=== PATIENT | male | born 1985 | race Caucasian/White ===

== ENCOUNTER → 2024-10-10 16:11 | Outpatient (REF) | payer OTHER, SELFPAY | LOC: REG 16:11 | PROVIDERS: ATTENDING PHYSICIAN Family Medicine | DX: R07.89 Other chest pain (principal); M54.9 Dorsalgia, unspecified | CPT/HCPCS: 71101 ==

== ENCOUNTER → 2024-10-14 12:46 | Outpatient (REF) | payer OTHER, SELFPAY | LOC: HWRAD 12:46 | PROVIDERS: ATTENDING PHYSICIAN Family Medicine | DX: M54.9 Dorsalgia, unspecified (principal); R10.10 Upper abdominal pain, unspecified | CPT/HCPCS: 76700 ==

== ENCOUNTER → 2025-01-14 14:06 | Outpatient (REF) | payer OTHER, SELFPAY | LOC: RAD 14:06 | PROVIDERS: ATTENDING PHYSICIAN Registered Nurse | DX: R09.89 Other specified symptoms and signs involving the circulatory and respiratory systems (principal) | CPT/HCPCS: 71046 ==

== ENCOUNTER 2025-07-03 00:56 | Emergency (ER) | payer OTHER, SELFPAY ==
[2025-07-03 00:59] VITALS: BP 132/82
[2025-07-03 01:13] VITALS: BMI 28.8
--- NOTE | 2025-07-03 01:27 | ED.GENMED ---
History of Present Illness
General
Chief Complaint: Fainting/Passed Out
Source: patient and spouse
Exam Limitations: none
Time Seen by Provider: 07/03/25 01:07
Nursing documentation reviewed up to this point in time: agreed with
History of Present Illness
History of Present Illness:
39-year-old male presenting to the emergency department after syncopal episode. He claims that he woke up from sleeping on the couch went to the bathroom after urinating was walking felt lightheaded and fell to the ground does not lapse of memory.
He claims that his heard a thud walked over and within a few seconds he was awake. There was a hole in the drywall. He had a laceration to his right upper lip and left eyebrow. He denies any chest pain palpitations shortness of breath or
additional symptoms other than some achiness to his face after the event. Has had intermittent lightheadedness over the past years. Denies any known heart history or substance use.
Review of Systems
Review of Systems
Allergies reviewed?: Yes
All Other Systems: ROS reviewed and negative except as documented in HPI and ROS
Phy Exam
Physical Exam
Physical Exam:
GENERAL: Alert , in no apparent distress
EYE: pupils equal and reactive
NECK: No neck pain supple, no significant adenopathy.
ENT: 3 cm laceration superior to the right upper lip, 1 cm laceration just lateral to the left eyebrow, o/p clr, mmm.
CARDIAC: Regular rate and rhythm .
LUNGS: Clear breath sounds bilaterally, no acute respiratory distress, no wheezes/rales/rhonchi
ABDOMEN: Soft, without focal tenderness, no r/g, no cvat
NEUROLOGICAL: Alert and oriented, no focal neuro deficits 5 out of 5 upper and lower extremity strength normal sensation with palpating bilaterally
SKIN: Warm and dry, skin intact.
MUSCULOSKELETAL: No edema, well perfused.
PSYCH: Normal and appropriate interaction.
Course
Orders/Labs/Results
Orders:
Orders
07/03/25 01:27
EKG [Electrocardiogram (*1)] Urgent
Reason for Study: Fatigue / Weakness
EKG- Treatment ONCE
07/03/25 01:36
BMP [Basic Metabolic Panel] Urgent
CBC/With Diff [Complete Blood Count/With Diff] Urgent
07/03/25 01:54
CT Head W/o Iv Contrast Urgent
Comment:
Reason For Exam: fall hit head loc
Lidocaine/Epinephrine/Tetracai [Let Topical Anesthetic Gel] 3 ml TOPICAL NOW STA
Tetanus/Diphth/Acelpertussis [Adacel] 0.5 ml IM .ONCE ONE
Abnormal Lab Results
07/03/25
01:36
BUN 24 H mg/dl
(920)
Glucose 102 H mg/dl
(70-99)
07/03/25 01:36
07/03/25 01:36
Vital Signs
Initial and Last Documented VS:
Initial Vital Signs
Temp Pulse Resp BP Pulse Ox
98.3 F 59 14 132/82 97
07/03/25 00:59 07/03/25 00:59 07/03/25 00:59 07/03/25 00:59 07/03/25 00:59
Last Documented Vital Signs
Temp Pulse Resp BP Pulse Ox
98.3 F 75 22 132/82 98
07/03/25 00:59 07/03/25 02:45 07/03/25 02:45 07/03/25 00:59 07/03/25 02:45
Procedures
Laceration Closure
Right Superior Lip:
Status of Wound: clean
Size of Wound in cm: 3
Description of Wound Edges: sharp
Preparation: cleaned with saline
Anesthesia: 1% Lidocaine
Revision/Debridement: routine- no revision
Wound exploration: explored to base- no FB and no tendon involvement
Type of Closure: single layer closure
Skin Closure Material: 6-0 nylon
Number of sutures: 4
Left Lateral Eye brow:
Status of Wound: clean
Size of Wound in cm: 1
Description of Wound Edges: sharp and surrounded by abrasion
Preparation: cleaned with saline
Anesthesia: Topical-LET
Revision/Debridement: routine- no revision and irrigate-direct pressure
Wound exploration: explored to base- no FB
Type of Closure: Dermabond-skin glue
MDM/Problems Addressed
MDM/Problems Addressed:
39-year-old male presenting to the emergency department after syncopal episode. Preceded by lightheadedness no chest pain palpitations or shortness of breath associated. Normal EKG here normal vital signs fully asymptomatic upon arrival. No
significant postictal period does not seem to be consistent with seizure activity. Labs unremarkable patient in no distress laceration closed with stitches of his right lip and Dermabond left eye. Head CT without acute findings. Stable for
outpatient follow-up. Return precautions given.
*Pulse Oximetry
SaO2: 97
Oxygen Mode of Delivery: Room air
Patient hypoxic: no (98)
*Critical Care Note
Total Time (30-74mins, 75-104mins- exclusive of procedures): Not Applicable
ED Attending Note
-
Portions of this chart may have been created with voice recognition software.� Occasional wrong word or��sound alike� substitutions may have occurred due to the inherent limitations of voice recognition software.
Discharge Plan
Departure
Patient Disposition: Home (Routine Discharge)
Date of Disposition: 07/03/25
Time of Disposition: 02:59
Patient with high blood pressure during this ER visit?: No
Condition: Good
Covid-19: Not Applicable
Discharge Problem:
Syncope, Laceration of lip, Eyebrow laceration
Instructions: Syncope (Fainting) (DC), Stitches and ronak, Suture care - Skin Glue
Prescriptions:
No Action
albuterol sulfate 2.5 mg /3 mL (0.083 %) solution for nebulization
2.5 mg inhalation QID PRN (Reason: shortness of breath or wheezing) Qty: 75 0RF
prednisone 20 mg tablet
40 mg PO DAILY Qty: 8 0RF
Referrals:
Darrell Talavera MD [Active, Cardiology] - Follow up in 10 days
Activity Restrictions/Additional Instructions:
You came to the emergency department today with concerns of syncopal episode. Please follow closely as an outpatient and have the stitches removed in 7 days to your right leg. Return for any worsening, new or concerning symptoms.
Interventions
Interventions:
*Risk Screen - Suicide Last Done: 07/03/25 00:59
*General Assessment Last Done: 07/03/25 01:13
*Neglect/Abuse Screening Last Done: 07/03/25 01:13
*ED- Fall Risk Assessment Last Done: 07/03/25 01:13
*ED COVID-19 Vaccine History Last Done: 07/03/25 01:13
*ED Influenza Vaccine History Last Done: 07/03/25 01:13
ED- Cardiac Assessment Last Done: 07/03/25 01:16
ED- Neurological Assessment Last Done: 07/03/25 01:16
Discharge Date and Time
Print Language: DIVEHI
[2025-07-03 01:29] VITALS: BP 129/85; BP 133/80; BP 134/76; PULSE 51; PULSE 55
[2025-07-03 01:54] LABS: Hematocrit 44.3 % (39.0-52.0); Hemoglobin 15.6 g/dL (13.0-18.0); Mean Corp Hgb Conc. 35.2 g/dL (33.0-37.0); Mean Corpuscular Volume 84.7 fL (80.0-94.0); Nucleated Red Blood Cells % 0 % (-); Platelet Count 153 10^3/uL (130-400); Red Cell Dist. Width 12.1 % (11.5-14.5)
[2025-07-03] MEDS: LET TOPICAL ANESTHETIC GEL 3 ML TOPICAL (01:58)
[2025-07-03] MEDS: ADACEL 0.5 ML IM (01:58)
[2025-07-03 02:16] LABS: Blood Urea Nitrogen 24 mg/dl (9-20); Calcium 9.6 mg/dl (8.4-10.2); Carbon Dioxide 30 mmol/L (22-30); Chloride 102 mmol/L (98-107); Estimated Creatinine Clearance 92 ml/min; Glucose 102 mg/dl (70-99); Potassium 4.6 mmol/L (3.5-5.1); Sodium 139 mmol/L (135-145); eGFR > 60.00
== END 2025-07-03 03:17 | disposition home or self-care (01) ==
LOC: EMR 00:56
PROVIDERS: Physician Assistant; EMERGENCY PHYSICIAN Emergency Medicine; FAMILY PHYSICIAN Family Medicine
DX: S01.511A Laceration without foreign body of lip, initial encounter (principal); S01.112A Laceration without foreign body of left eyelid and periocular area, initial encounter; W18.39XA Other fall on same level, initial encounter; R55 Syncope and collapse
CPT/HCPCS: 99284; 90471; 12013; 70450; 80048; 85025; 90715; 93005

== ENCOUNTER → 2025-07-31 11:30 | Outpatient (REF) | payer OTHER, SELFPAY | LOC: RAD 11:30 | PROVIDERS: ATTENDING PHYSICIAN Family Medicine | DX: M25.522 Pain in left elbow (principal); M79.632 Pain in left forearm | CPT/HCPCS: 73080; 73090 ==